=== PATIENT | male | born 1995 | race African-American/Black ===

== ENCOUNTER 2018-03-20 16:26 | Emergency (ER) | payer OTHER ==
[2018-03-20] MEDS: NAPROXEN 250 MG TAB PO (17:04)
== END 2018-03-20 17:33 | disposition home or self-care (01) ==
LOC: M ED 16:26
DX: S70.311A Abrasion, right thigh, initial encounter (principal); S70.11XA Contusion of right thigh, initial encounter; V29.49XA Motorcycle driver injured in collision with other motor vehicles in traffic accident, initial encounter; Y92.410 Unspecified street and highway as the place of occurrence of the external cause
CPT/HCPCS: 73552